=== PATIENT | male | born 1980 | race Two or more races ===

== ENCOUNTER 2022-02-07 23:32 | Inpatient (IN) | payer OTHER ==
[2022-02-08 02:49] LABS: BASO % 0.5 % (0-2.0); HEMATOCRIT 36.7 % (35.4-49); HEMOGLOBIN 13.1 GM/dL (11.7-16.9); LYMPH % 51.5 % (8-40); MCH 33.4 pg (25.7-33.7); MCHC 35.7 g/dl (32.0-35.9); MEAN CELL VOLUME 93.6 fl (80-96); MEAN PLT VOLUME 10.6 fl (7.5-11.1); MONO % 8.8 % (3.8-10.2); NEUT % 37.2 % (42.8-82.8); PLATELET COUNT 197 10^3/uL (134-434); RBC 3.93 M/mm3 (4.00-5.60); RDW 17.1 % (11.9-15.9); WHITE BLOOD COUNT 5.4 K/mm3 (4.0-10.0)
[2022-02-08 03:06] LABS: INR 1.21 (0.83-1.09)
[2022-02-08 03:09] LABS: ACTIVATED PTT 35.5 SECONDS (25.2-36.5)
[2022-02-08 03:10] LABS: ALBUMIN 2.5 g/dl (3.4-5.0); BLOOD UREA NITROGEN 8.3 mg/dL (7-18); CALCIUM 8.5 mg/dL (8.5-10.1)
[2022-02-08 03:13] LABS: CREATININE 0.8 mg/dL (0.55-1.3)
[2022-02-08 03:15] LABS: BILIRUBIN,TOTAL 10.6 mg/dL (0.2-1); TOT PROT 7.8 g/dl (6.4-8.2)
[2022-02-08 11:04] LABS: BILIRUBIN,DIRECT 8.9 mg/dL (0.0-0.2)
[2022-02-08 11:05] LABS: PHOSPHOROUS 3.8 mg/dL (2.5-4.9)
[2022-02-08 12:07] VITALS: BMI 32.1
[2022-02-08] MEDS: diphenhydrAMINE HCL 25 MG CAPSULE (FP) PO PRN (17:56)
[2022-02-08] MEDS: SODIUM CHLORIDE 1,000 ML IV SCH (18:16)
[2022-02-09] MEDS: diphenhydrAMINE HCL 25 MG CAPSULE (FP) PO PRN ×2 (05:33→16:28)
[2022-02-09] MEDS: SODIUM CHLORIDE 1,000 ML IV SCH ×2 (05:35→22:32)
[2022-02-09 09:46] LABS: PH,URINE 6.5 (5.0-8.0); URINE APPEARANCE CLEAR; URINE BILIRUBIN 2+ (NEGATIVE); URINE COLOR DK YELLOW; URINE GLUCOSE (UA) NEGATIVE (NEGATIVE); URINE KETONE NEGATIVE (NEGATIVE); URINE LEUK ESTERASE NEGATIVE (NEGATIVE); URINE NITRITE NEGATIVE (NEGATIVE); URINE PROTEIN NEGATIVE (NEGATIVE)
[2022-02-09 09:55] LABS: PHENCYCLIDINE,URINE NEGATIVE (NEGATIVE); URINE BARBITURATES NEGATIVE (NEGATIVE)
[2022-02-09 09:56] LABS: METHADONE, UR NEGATIVE (NEGATIVE); OPIATES, URI NEGATIVE (NEGATIVE); URINE AMPHETAMINES NEGATIVE (NEGATIVE); URINE BENZODIAZEPINES NEGATIVE (NEGATIVE)
[2022-02-09 10:09] LABS: COCAINE, UR POSITIVE (NEGATIVE)
[2022-02-09 10:32] LABS: BASO % 0.7 % (0-2.0); EOS % 2.7 % (0-4.5); HEMATOCRIT 37.1 % (35.4-49); HEMOGLOBIN 12.9 GM/dL (11.7-16.9); MCH 32.9 pg (25.7-33.7); MCHC 34.6 g/dl (32.0-35.9); MEAN CELL VOLUME 95.1 fl (80-96); MEAN PLT VOLUME 10.6 fl (7.5-11.1); MONO % 9.2 % (3.8-10.2); NEUT % 31.4 % (42.8-82.8); PLATELET COUNT 225 10^3/uL (134-434); RDW 17.6 % (11.9-15.9); WHITE BLOOD COUNT 5.2 K/mm3 (4.0-10.0)
[2022-02-09 11:06] LABS: CALCIUM 8.9 mg/dL (8.5-10.1)
[2022-02-09 11:07] LABS: ALBUMIN 2.6 g/dl (3.4-5.0); BLOOD UREA NITROGEN 7.6 mg/dL (7-18)
[2022-02-09 11:10] LABS: BILIRUBIN,TOTAL 11.2 mg/dL (0.2-1); CREATININE 0.8 mg/dL (0.55-1.3)
[2022-02-09] MEDS ORDERED: ACETYLCYSTEINE IVPB ONE ×3 (15:00→20:00)
[2022-02-09] MEDS ORDERED: DEXTROSE 5% IVPB ONE ×3 (15:00→20:00)
[2022-02-09] MEDS ORDERED: WATER IVPB ONE ×3 (15:00→20:00)
[2022-02-09] MEDS: chlordiazePOXIDE HCL 25 MG CAPSULE PO SCH ×2 (15:15→21:33)
[2022-02-10] MEDS: chlordiazePOXIDE HCL 25 MG CAPSULE PO SCH ×3 (06:40→22:40)
[2022-02-10 09:53] LABS: BASO % 0.7 % (0-2.0); EOS % 2.5 % (0-4.5); HEMATOCRIT 34.9 % (35.4-49); LYMPH % 57.2 % (8-40); MCH 32.4 pg (25.7-33.7); MCHC 34.3 g/dl (32.0-35.9); MEAN CELL VOLUME 94.5 fl (80-96); MEAN PLT VOLUME 10.7 fl (7.5-11.1); MONO % 8.7 % (3.8-10.2); NEUT % 30.9 % (42.8-82.8); PLATELET COUNT 188 10^3/uL (134-434); RDW 17.3 % (11.9-15.9); WHITE BLOOD COUNT 5.2 K/mm3 (4.0-10.0)
[2022-02-10 10:00] LABS: INR 1.28 (0.83-1.09); PROTHROMBIN TIME (PATIENT) 14.8 SEC (9.7-13.0)
[2022-02-10] MEDS: PANTOPRAZOLE 40 MG TABLET PO SCH (10:06)
[2022-02-10 10:24] LABS: ALBUMIN 2.2 g/dl (3.4-5.0); BLOOD UREA NITROGEN 4.4 mg/dL (7-18); CALCIUM 8.7 mg/dL (8.5-10.1)
[2022-02-10 10:27] LABS: BILIRUBIN,DIRECT 8.3 mg/dL (0.0-0.2); CREATININE 0.7 mg/dL (0.55-1.3)
[2022-02-10 10:28] LABS: TOT PROT 7.3 g/dl (6.4-8.2)
[2022-02-10 10:30] LABS: BILIRUBIN,TOTAL 10.2 mg/dL (0.2-1)
[2022-02-11 04:07] LABS: IGA IMMUNOGLOBULIN 665 mg/dL (90-386); IGG QN IMMUNOGLOBULIN 2485 mg/dL (603-1613); IGM QN SERUM 99 mg/dL (20-172)
[2022-02-11] MEDS: chlordiazePOXIDE HCL 25 MG CAPSULE PO SCH ×3 (06:28→21:11)
[2022-02-11 08:33] LABS: BASO % 0.5 % (0-2.0); EOS % 2.9 % (0-4.5); HEMATOCRIT 32.5 % (35.4-49); HEMOGLOBIN 11.3 GM/dL (11.7-16.9); LYMPH % 56.5 % (8-40); MCH 32.8 pg (25.7-33.7); MCHC 34.6 g/dl (32.0-35.9); MEAN CELL VOLUME 94.8 fl (80-96); MEAN PLT VOLUME 10.8 fl (7.5-11.1); MONO % 9.7 % (3.8-10.2); NEUT % 30.4 % (42.8-82.8); PLATELET COUNT 179 10^3/uL (134-434); RBC 3.43 M/mm3 (4.00-5.60); RDW 17.5 % (11.9-15.9); WHITE BLOOD COUNT 4.8 K/mm3 (4.0-10.0)
[2022-02-11 08:44] LABS: CALCIUM 8.4 mg/dL (8.5-10.1); INR 1.21 (0.83-1.09)
[2022-02-11 08:45] LABS: ALBUMIN 2.1 g/dl (3.4-5.0); BLOOD UREA NITROGEN 6.8 mg/dL (7-18)
[2022-02-11 08:47] LABS: BILIRUBIN,DIRECT 7.6 mg/dL (0.0-0.2)
[2022-02-11 08:48] LABS: CREATININE 0.8 mg/dL (0.55-1.3)
[2022-02-11 08:49] LABS: TOT PROT 6.8 g/dl (6.4-8.2)
[2022-02-11 08:50] LABS: BILIRUBIN,TOTAL 8.9 mg/dL (0.2-1)
[2022-02-11] MEDS: PANTOPRAZOLE 40 MG TABLET PO SCH (09:20)
[2022-02-11 17:09] LABS: FREE KAPPA,SERUM 85.6 mg/L (3.3-19.4)
[2022-02-11 21:12] LABS: GLIADIN ANTIBODY IGA 13 units (0-19); GLIADIN ANTIBODY IGG 3 units (0-19); TRANSGLUTAMINASE IGG < 2 U/mL (0-5)
[2022-02-12] MEDS: chlordiazePOXIDE HCL 25 MG CAPSULE PO SCH (05:43)
[2022-02-12] MEDS: PANTOPRAZOLE 40 MG TABLET PO SCH (09:26)
[2022-02-12 09:34] LABS: BASO % 0.6 % (0-2.0); EOS % 2.6 % (0-4.5); HEMATOCRIT 37.1 % (35.4-49); HEMOGLOBIN 12.9 GM/dL (11.7-16.9); LYMPH % 57.6 % (8-40); MCH 32.6 pg (25.7-33.7); MCHC 34.7 g/dl (32.0-35.9); MEAN PLT VOLUME 10.1 fl (7.5-11.1); MONO % 7.7 % (3.8-10.2); NEUT % 31.5 % (42.8-82.8); PLATELET COUNT 209 10^3/uL (134-434); RBC 3.95 M/mm3 (4.00-5.60); RDW 17.8 % (11.9-15.9); WHITE BLOOD COUNT 5.6 K/mm3 (4.0-10.0)
[2022-02-12 09:38] LABS: INR 1.24 (0.83-1.09); PROTHROMBIN TIME (PATIENT) 14.3 SEC (9.7-13.0)
[2022-02-12 10:03] LABS: BLOOD UREA NITROGEN 7.7 mg/dL (7-18); CALCIUM 8.8 mg/dL (8.5-10.1)
[2022-02-12 10:04] LABS: ALBUMIN 2.4 g/dl (3.4-5.0)
[2022-02-12 10:06] LABS: BILIRUBIN,DIRECT 8.4 mg/dL (0.0-0.2)
[2022-02-12 10:07] LABS: CREATININE 0.8 mg/dL (0.55-1.3)
[2022-02-12 10:08] LABS: TOT PROT 7.8 g/dl (6.4-8.2)
[2022-02-12] MEDS: chlordiazePOXIDE 5 MG CAPSULE PO SCH ×2 (15:31→22:30)
[2022-02-13] MEDS: chlordiazePOXIDE 5 MG CAPSULE PO SCH (06:35)
[2022-02-13] MEDS: PANTOPRAZOLE 40 MG TABLET PO SCH (09:39)
[2022-02-13 10:10] LABS: INR 1.2 (0.83-1.09); PROTHROMBIN TIME (PATIENT) 13.8 SEC (9.7-13.0)
[2022-02-13 10:11] VITALS: BP 1118/66; PULSE 68; TEMP 98
[2022-02-13 10:11] LABS: BASO % 0.6 % (0-2.0); EOS % 3.1 % (0-4.5); HEMOGLOBIN 12.1 GM/dL (11.7-16.9); LYMPH % 54.7 % (8-40); MCH 33.3 pg (25.7-33.7); MCHC 34.6 g/dl (32.0-35.9); MEAN CELL VOLUME 96.2 fl (80-96); MEAN PLT VOLUME 10.4 fl (7.5-11.1); MONO % 7.4 % (3.8-10.2); NEUT % 34.2 % (42.8-82.8); PLATELET COUNT 214 10^3/uL (134-434); RBC 3.64 M/mm3 (4.00-5.60); RDW 17.7 % (11.9-15.9); WHITE BLOOD COUNT 4.8 K/mm3 (4.0-10.0)
[2022-02-13 10:33] LABS: ALBUMIN 2.5 g/dl (3.4-5.0); BILIRUBIN,TOTAL 9.6 mg/dL (0.2-1); BLOOD UREA NITROGEN 9.4 mg/dL (7-18); CALCIUM 8.9 mg/dL (8.5-10.1); CREATININE 0.8 mg/dL (0.55-1.3); TOT PROT 7.8 g/dl (6.4-8.2)
[2022-02-13] MEDS ORDERED: chlordiazePOXIDE 5 MG CAPSULE PO SCH (15:00)
== END 2022-02-13 10:17 | disposition short-term general hospital (02) | DRG 280 ==
LOC: JER 23:32 → JERBED 02-08 07:21 → J6S 02-08 10:45
PROVIDERS: ADMIT Internal Medicine; ATTEND Internal Medicine
DX: K70.10 Alcoholic hepatitis without ascites (principal); K86.2 Cyst of pancreas; D68.9 Coagulation defect, unspecified; F10.20 Alcohol dependence, uncomplicated; R79.89 Other specified abnormal findings of blood chemistry; F14.10 Cocaine abuse, uncomplicated; E78.1 Pure hyperglyceridemia; L29.9 Pruritus, unspecified; K82.8 Other specified diseases of gallbladder; F17.200 Nicotine dependence, unspecified, uncomplicated
CPT/HCPCS: 36415; 74176-TC; 74177-TC; 74181-TC; 76705-TC; 80048; 80053; 80076; 80307; 81003; 82140; 82248; 82378; 82728; 82784; 83010; 83516; 83540; 83550; 83615; 83690; 83735; 83883; 84100; 84155; 84165; 84466; 85025; 85045; 85610; 85730; 86038; 86301; 86704; 86709; 86803; 86880; 87040; 87086; 87340; 87517; 87522; 93005; 93010; 99285-25; C9803-CS; U0003; U0005